=== PATIENT | female | born 1975 | race Caucasian/White ===

== ENCOUNTER 2023-05-24 09:40 | Emergency (ER) | payer BC, SELFPAY ==
[2023-05-24 10:13] VITALS: BP 152/87
--- NOTE | 2023-05-24 10:33 | ED.MUSCINJ ---
HPI-Injury
General
Chief Complaint: Musculo-Skeletal Complaint
Source: patient
Exam Limitations: none
Time Seen by Provider: 05/24/23 10:23
Travel History
Have you had any contact with someone who has COVID-19?: No
Do you have any symptoms of coronavirus? Fever > 100 degrees, chills, cough, shortness of breath, sore throat, loss of taste or smell, muscle aches, or headache?: No
History of Present Illness-Injury
Initial Injury comments:
47-year-old knecl-izyo-[id number] female presents complaining of left elbow pain starting yesterday. She fell while rollerskating. She may have landed on her hand. She did not hit her head. No other complaints at this time
Past History
Social History
Tobacco: Non-smoker
Phy Exam
Physical Exam
Physical Exam:
General well-appearing female no acute respiratory distress
Musculoskeletal exam shows left elbow is tender over the radial aspect. Decreased pronation and supination. She has good passive extension and flexion as well as wrist extension and flexion. She is nontender over the lateral medial aspect of the
distal humerus.
Vascular shows 2+ radial pulse left wrist.
Neuro: good sensation left hand
Injury Course
Orders/Labs/Results
Orders:
Orders
05/24/23 10:16
Elbow, 3 view, Left [CR Elbow - Left Min 3 Views ] Urgent
Comment:
Reason For Exam: pain
05/24/23 10:33
Sling Left-Treatment ONCE
MDM/Problems Addressed
Differential Diagnosis Includes:
Left elbow pain after fall. Differential could include sprain versus fracture versus dislocation
I have visualized the x-rays left elbow demonstrate a radial head fracture. Patient will be placed in a sling and will be advised to follow-up with orthopedics for further evaluation
*Critical Care Note
Total Time (30-74mins, 75-104mins- exclusive of procedures): Not Applicable
ED Attending Note
-
Portions of this chart may have been created with voice recognition software.� Occasional wrong word or��sound alike� substitutions may have occurred due to the inherent limitations of voice recognition software.
Discharge Plan
Departure
Patient Disposition: Home (Routine Discharge)
Date of Disposition: 05/24/23
Time of Disposition: 10:35
Patient with high blood pressure during this ER visit?: No
Discharge Problem:
Closed fracture of radial head
Instructions: Muscle and Bone Pain (DC)
Prescriptions:
No Action
No Current Medications
Referrals:
Andrey Hager MD [Active] -
Activity Restrictions/Additional Instructions:
Use sling. Continue with ibuprofen and Tylenol. Follow-up with orthopedics for further evaluation
Interventions
Interventions:
*Risk Screen - Suicide Last Done: 05/24/23 10:13
*General Assessment Last Done: 05/24/23 10:13
*Neglect/Abuse Screening Last Done: 05/24/23 10:13
== END 2023-05-24 11:06 | disposition home or self-care (01) ==
LOC: EMR 09:40
PROVIDERS: EMERGENCY PHYSICIAN Emergency Medicine; FAMILY PHYSICIAN Nurse Practitioner
DX: S52.125A Nondisplaced fracture of head of left radius, initial encounter for closed fracture (principal); V00.121A Fall from non-in-line roller-skates, initial encounter; Y93.51 Activity, roller skating (inline) and skateboarding
CPT/HCPCS: 99283; 73080

== ENCOUNTER 2024-03-20 06:24 | Day surgery (SDC) | payer BC, SELFPAY | END 2024-03-20 12:28 | disposition home or self-care (01) | LOC: GI 06:24 | PROVIDERS: ATTENDING PHYSICIAN Student in an Organized Health Care Education/Training Program | DX: Z12.11 Encounter for screening for malignant neoplasm of colon (principal); K63.5 Polyp of colon; K57.30 Diverticulosis of large intestine without perforation or abscess without bleeding; K62.1 Rectal polyp; Z80.0 Family history of malignant neoplasm of digestive organs | CPT/HCPCS: 45380; 88305 ==

== ENCOUNTER → 2024-07-11 10:58 | Outpatient (REF) | payer BC, SELFPAY | LOC: HWWDC 10:58 | PROVIDERS: ATTENDING PHYSICIAN Nurse Practitioner | DX: Z12.31 Encounter for screening mammogram for malignant neoplasm of breast (principal) | CPT/HCPCS: 77063; 77067 ==